=== PATIENT | male | born 1950 | race Caucasian/White ===

== ENCOUNTER 2020-11-02 19:02 | Emergency (ER) | payer MEDICARE ==
[2020-11-02] MEDS ORDERED: DOXYCYCLINE MO100 MG PO (19:53)
== END 2020-11-02 20:15 | disposition home or self-care (01) ==
LOC: ER1 19:02
PROVIDERS: Physician Assistant
DX: S40.861A Insect bite (nonvenomous) of right upper arm, initial encounter (principal); S30.861A Insect bite (nonvenomous) of abdominal wall, initial encounter; I10 Essential (primary) hypertension; E78.5 Hyperlipidemia, unspecified; I25.2 Old myocardial infarction; Z95.1 Presence of aortocoronary bypass graft; Z88.0 Allergy status to penicillin; W57.XXXA Bitten or stung by nonvenomous insect and other nonvenomous arthropods, initial encounter
CPT/HCPCS: 86618; 86757; 99283